=== PATIENT | female | born 1940 | race Caucasian/White ===

== ENCOUNTER → 2024-08-03 | Outpatient (CLI) | payer MEDICARE, OTHER, SELFPAY ==
[2024-08-03 14:32] LABS: Basophils % (Auto) 1 % (0-2.5); Eosinophils # (Auto) 0.1 Thou/mm3 (0.0-0.5); Eosinophils % (Auto) 3 % (0-10); Hematocrit 33.1 % (36.0-46.0); Hemoglobin 10.9 g/dL (12.0-16.0); Immature Granulocytes % (Auto) 1 % (0-0); Immature Granulocytes Auto 0.02 Thou/mm3 (0.00-0.00); Lymphocytes # (Auto) 1.1 Thou/mm3 (1.0-4.8); Lymphocytes % (Auto) 30 % (10-50); Mean Corpuscular HGB Conc 32.9 g/dl (31.0-37.0); Mean Corpuscular Hemoglobin 31.1 pg (25.0-35.0); Mean Corpuscular Volume 95 fL (80-100); Monocytes # (Auto) 0.5 Thou/mm3 (0.0-0.8); Monocytes % (Auto) 14 % (0-12); Neutrophils # (Auto) 1.9 Thou/mm3 (1.8-7.7); Neutrophils % (Auto) 52 % (37-80); Nucleated Red Blood Cell % 0 /100 WBC (0); Platelet Count 121 Thou/mm3 (140-440); White Blood Count 3.7 Thou/mm3 (3.6-11.0)
[2024-08-03 14:53] LABS: Alanine Aminotransferase 19 U/L (10-49); Albumin, Serum 4.4 gm/dL (3.4-4.8); Albumin/Globulin Ratio 1.9 (1.2-2.2); Alkaline Phosphatase 57 U/L (46-116); Anion Gap 7 (7-16); Aspartate Amino Transferase 30 U/L (0-34); BUN/Creatinine Ratio 40 Ratio (12-20); Bilirubin,Total 0.5 mg/dL (0.3-1.2); Blood Urea Nitrogen 40 mg/dL (9-23); Calcium 9.3 mg/dL (8.3-10.6); Calcium (Corrected) 9.3 mg/dL (8.5-10.1); Carbon Dioxide 29.5 mMol/L (20.0-31.0); Chloride 105 mMol/L (98-107); Globulin 2.3 gm/dL (2.3-3.5); Glucose 108 mg/dL (74-106); Osmolality,Calculated 291 (275-295); Potassium 4.4 mMol/L (3.4-5.1); Sodium 141 mMol/L (136-145); Total Protein 6.7 gm/dL (5.7-8.2); eGFR 56 See Note
== END | disposition home or self-care (01) ==
LOC: SCTO 13:15
PROVIDERS: PCP Internal Medicine; Referring Provider Internal Medicine Hematology & Oncology; Visit Provider Internal Medicine Hematology & Oncology
DX: C50.919 Malignant neoplasm of unspecified site of unspecified female breast (principal); M81.0 Age-related osteoporosis without current pathological fracture; D51.8 Other vitamin B12 deficiency anemias
CPT/HCPCS: 36415; 80053; 85025

== ENCOUNTER 2024-08-12 08:53 | Outpatient (RCR) | payer MEDICARE, OTHER, SELFPAY ==
--- NOTE | 2024-08-28 20:58 | CTCFLWUP_ITS ---
Patient: MAKAYLA HAMMONDS : 1940 Page 3 of 4 FOLLOW UP NOTE DATE OF SERVICE: 08/11/2024 NAME: MAKAYLA HAMMONDS ACCOUNT: [id number] : 1940 AGE: 84 INTERVAL HISTORY: Patient is doing well. 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 1995: Patient had right breast lumpectomy, axillary dissection at [facility] followed by chemothera py and radiation. As per patient her cancer was receptor negative. The pathology is not available to me. 2003: She had a recurrence or a second primary in the right breast. Patient had mastectomy. The pat h report is not available to me. Again as per patient the cancer was receptor negative. 02/20/2016: EGD? 02/27/2016: Colonoscopy? 09/30/2018: I am following the patient for the first time here at cancer center. She complains of new onset pain in the left axilla started about a month ago. She grades the pain 7/10. She denies any cough chest pain sh ortness of breath abdominal pain or leg cramps. She denies any weight loss or loss of appetite. She denies any injury to the left axillary region. 10/25/2018: Patient is in the clinic today for follow-up. Since last visit patient had PET/CT scan do ne on 10/22/2018 and it was a negative study. She also had a chest x-ray which showed an element of C OPD. Otherwise it is a negative study. Other than mild pain on the right side of the chest she mari es any other complaints. Denies any cough chest pain shortness of breath abdominal pain or leg cramp s. 02/27/2020: Open reduction fixation left bicondylar tibial plateau fracture using Synthes proximal tib ial periarticular plate. 04/11/2020: Ultrasound of the left lower extremity? 06/28/2020: Bone density test? 07/02/2020: B12 is 196 (211?911), iron saturation 15% 07/09/2020: Hemoglobin 7.4 with an MCV of 104. WBC 2.7, ANC 1.6, platelets 209,000. 07/16/2020: Patient received first dose of B12 injection. 08/06/2020: Doppler ultrasound study of the left lower extremity? 08/20/2020: Hemoglobin 8.5, MCV 100, WBC 4.2, ANC 2.8, platelets 201,000, iron saturation 6%, ferriti n 18. 09/03/2020?10/29/2020: The patient received Venofer infusions. 03/21/2024: WBC 3.7, ANC 1.9, hemoglobin 11.0, MCV 97, platelets 122,000, ferritin 495, B12 660, iron saturation 23%. 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 Citracal - 200 mg (950 mg) 1 tab Daily 2. Prolia - 60 mg/mL Medications Last Reconciled by Tanisha Whiteside MD on 08/11/2024 ALLERGIES: PENICILLINS; DOXYCYCLINE; SULFAMETHOXAZOLE; TRIMETHOPRIM; CIPROFLOXACIN; OMEPRAZOLE; RANIT IDINE; LEVOFLOXACIN; ciprofloxacin; DOXYCYCLINE HYCLATE; levofloxacin; omeprazole; Penicillins; ranit idine HCl; Sulfa (Sulfonamide Antibiotics); TRIMETHOPRIM REVIEW OF SYSTEMS: A complete 14-point review of systems was performed and is negative except as noted in interval histo ry. PHYSICAL EXAMINATION: VITAL SIGNS: Temperature?98.4, B/P?125/65, Oxygen?Saturation?99% Weight?110.4?lbs PAIN: 0 - No pain ECOG Performance Status: 0 - Asymptomatic and fully active GENERAL APPEARANCE: Appears well, in no apparent distress, appropriately interactive. HEENT: Normocephalic, no temporal wasting, normal conjunctiva, no scleral icterus, normal hearing, li ps without lesions, neck normal range of motion. CARDIOVASCULAR: Not assessed. PULMONARY: Normal respiratory effort, no respiratory distress or use of accessory muscles, speaking i n full sentences, no tachypnea. EXTREMITIES: No pedal edema or cyanosis. SKIN: Normal skin appearance. NEUROLOGIC: Alert and oriented x4. PSHYCHIATRIC: Appropriate affect, mood normal, behavior normal, intact thought and speech. LABORATORY DATA: I have personally reviewed and interpreted each of the patient?s relevant lab tests, abnormal finding s are below: Date 08/03/24 ??WHITE?BLOOD?COUNT?(Thou/mm3) 3.7 ??RED?BLOOD?COUNT?(Miln/mm3) 3.50?L ??HEMOGLOBIN?(gm/dl) 10.9?L ??HEMATOCRIT?(%) 33.1?L ??PLATELET?COUNT?(Thou/mm3) 121?L ??NEUTROPHILS?%,?AUTO?(%) 52 ??LYMPH?%,?AUTO?(%) 30 ??NEUTROPHILS,?AUTO?(Thou/mm3) 1.9 ASSESSMENT/PLAN: The patient is clinically doing well without any complaints. osteoporosis. Currently getting Prolia injections in Dr. Rogers's office. The patient is taking Citra lianne 1 tablet p.o. daily.. History of fracture of the left tibia and fibula requiring her to have surgery. She was also found t o have DVT in the left lower extremity. Treated with Xarelto for 3 months. Stopped on August 09, 2020. Remote history of right breast cancer without any evidence of recurrence at this time. Continue B12 once a month. I will see her back in clinic in 1 year with labs done prior to the visit. ORDERS: Cbc.cmp.left mammogram RETURN TO CLINIC: 6 months BILLING AND COMPLIANCE: I reviewed external records from providers outside my specialty as summarized above. I spent a total of 50 minutes on this patient?s care on the day of their visit excluding time spent related to any bi lled procedures. This time includes time spent with the patient as well as time spent documenting in the medical record, reviewing patients records and tests, obtaining history, placing orders, communi cating with other healthcare professionals, counseling the patient, family or caregiver, and/or care coordination for the diagnoses above. Electronically Signed by: Kris Max MD T: 8:55 PM CC: Antwan?TIM Rogers PCP: Antwan Rogers Referring: Antwan Rogers This document was completed utilizing speech recognition software. Grammatical errors, random word in sertions, pronoun errors, and incomplete sentences are an occasional consequence of this system due t o software limitations, ambient noise, and hardware issues. Any formal questions or concerns about th e content, text or information contained within the body of this dictation should be directly address ed to the provider for clarification.
== END 2024-08-30 23:59 | disposition home or self-care (01) ==
LOC: SCTC 08:53
PROVIDERS: PCP Internal Medicine; Referring Provider Internal Medicine; Visit Provider Internal Medicine Hematology & Oncology
DX: Z08 Encounter for follow-up examination after completed treatment for malignant neoplasm (principal); Z85.3 Personal history of malignant neoplasm of breast; M81.0 Age-related osteoporosis without current pathological fracture; E53.8 Deficiency of other specified B group vitamins; Z86.718 Personal history of other venous thrombosis and embolism
CPT/HCPCS: 96372; 99213; J3420; G0463

== ENCOUNTER 2024-09-08 13:46 | Outpatient (RCR) | payer MEDICARE, OTHER, SELFPAY | END 2024-09-30 23:59 | disposition home or self-care (01) | LOC: SCTC 13:46 | PROVIDERS: PCP Internal Medicine; Referring Provider Internal Medicine; Visit Provider Internal Medicine Hematology & Oncology | DX: E53.8 Deficiency of other specified B group vitamins (principal) | CPT/HCPCS: 96372; J3420 ==

== ENCOUNTER 2024-10-06 14:04 | Outpatient (RCR) | payer MEDICARE, OTHER, SELFPAY | END 2024-10-28 23:59 | disposition home or self-care (01) | LOC: SCTC 14:04 | PROVIDERS: PCP Internal Medicine; Referring Provider Internal Medicine; Visit Provider Internal Medicine Hematology & Oncology | DX: E53.8 Deficiency of other specified B group vitamins (principal) | CPT/HCPCS: 96372; J3420 ==

== ENCOUNTER 2024-11-03 13:49 | Outpatient (RCR) | payer MEDICARE, OTHER, SELFPAY | END 2024-11-28 23:59 | disposition home or self-care (01) | LOC: SCTC 13:49 | PROVIDERS: PCP Internal Medicine; Referring Provider Internal Medicine; Visit Provider Internal Medicine Hematology & Oncology | DX: E53.8 Deficiency of other specified B group vitamins (principal) | CPT/HCPCS: 96372; J3420 ==

== ENCOUNTER 2024-12-01 13:37 | Outpatient (RCR) | payer MEDICARE, OTHER, SELFPAY | END 2024-12-28 23:59 | disposition home or self-care (01) | LOC: SCTC 13:37 | PROVIDERS: PCP Internal Medicine; Referring Provider Internal Medicine; Visit Provider Internal Medicine Hematology & Oncology | DX: E53.8 Deficiency of other specified B group vitamins (principal); M81.0 Age-related osteoporosis without current pathological fracture; Z86.718 Personal history of other venous thrombosis and embolism; Z85.3 Personal history of malignant neoplasm of breast | CPT/HCPCS: 96372; J3420 ==

== ENCOUNTER 2024-12-29 13:50 | Outpatient (RCR) | payer MEDICARE, OTHER, SELFPAY | END 2025-01-28 23:59 | disposition home or self-care (01) | LOC: SCTC 13:50 | PROVIDERS: PCP Internal Medicine; Referring Provider Internal Medicine; Visit Provider Internal Medicine Hematology & Oncology | DX: E53.8 Deficiency of other specified B group vitamins (principal); M81.0 Age-related osteoporosis without current pathological fracture; Z85.3 Personal history of malignant neoplasm of breast; Z90.11 Acquired absence of right breast and nipple | CPT/HCPCS: 96372; J3420 ==

== ENCOUNTER 2025-01-30 13:50 | Outpatient (RCR) | payer MEDICARE, OTHER, SELFPAY | END 2025-02-27 23:59 | disposition home or self-care (01) | LOC: SCTC 13:50 | PROVIDERS: PCP Internal Medicine; Referring Provider Internal Medicine; Visit Provider Internal Medicine Hematology & Oncology | DX: E53.8 Deficiency of other specified B group vitamins (principal); M81.0 Age-related osteoporosis without current pathological fracture; Z85.3 Personal history of malignant neoplasm of breast | CPT/HCPCS: 96372; J3420 ==

== ENCOUNTER 2025-03-02 14:02 | Outpatient (RCR) | payer MEDICARE, OTHER, SELFPAY | END 2025-03-30 23:59 | disposition home or self-care (01) | LOC: SCTC 14:02 | PROVIDERS: PCP Internal Medicine; Referring Provider Internal Medicine; Visit Provider Internal Medicine Hematology & Oncology | DX: E53.8 Deficiency of other specified B group vitamins (principal) | CPT/HCPCS: 96372; J3420 ==

== ENCOUNTER → 2025-03-23 | Outpatient (CLI) | payer MEDICARE, OTHER, SELFPAY ==
--- NOTE | 2025-03-23 11:00 | XR_ITS ---
Examination: Screening digital mammography, unilateral left Computer aided detection 3-D breast Tomosynthesis, unilateral Date and time of exam: March 23, 2025 1038 hours Compared to mammograms dating to November 10, 2019 Indication: Screening Technique: Nonmagnified MLO, CC views of the LEFT breast to been obtained, reconstructed from 3-D Tomosynthesis images. R2 computer aided detection program utilized for evaluation of suspicious masses and/or abnormal calcifications. 3-D Tomosynthesis images obtained. Findings: Scattered areas of fibroglandular density. Benign calcifications. No interval suspicious masses Impression: BI-RADS category II Benign findings Recommend 1 year follow-up mammogram.
== END | disposition home or self-care (01) ==
LOC: CDIM 10:29
PROVIDERS: PCP Internal Medicine; Referring Provider Internal Medicine Hematology & Oncology; Visit Provider Internal Medicine Hematology & Oncology
DX: Z12.31 Encounter for screening mammogram for malignant neoplasm of breast (principal); R92.322 Mammographic fibroglandular density, left breast; C50.919 Malignant neoplasm of unspecified site of unspecified female breast
CPT/HCPCS: 77063; 77067

== ENCOUNTER 2025-04-03 13:15 | Outpatient (RCR) | payer MEDICARE, OTHER, SELFPAY | END 2025-04-30 23:59 | disposition home or self-care (01) | LOC: SCTC 13:15 | PROVIDERS: PCP Internal Medicine; Referring Provider Internal Medicine; Visit Provider Internal Medicine Hematology & Oncology | DX: E53.8 Deficiency of other specified B group vitamins (principal) | CPT/HCPCS: 96372; J3420 ==

== ENCOUNTER 2025-05-30 14:14 | Outpatient (RCR) | payer MEDICARE, OTHER, SELFPAY | END 2025-05-30 23:59 | disposition home or self-care (01) | LOC: SCTC 14:14 | PROVIDERS: PCP Internal Medicine; Referring Provider Internal Medicine; Visit Provider Internal Medicine Hematology & Oncology | DX: E53.8 Deficiency of other specified B group vitamins (principal) | CPT/HCPCS: 96372; J3420 ==

== ENCOUNTER 2025-06-27 14:18 | Outpatient (RCR) | payer MEDICARE, OTHER, SELFPAY | END 2025-06-30 23:59 | disposition home or self-care (01) | LOC: SCTC 14:18 | PROVIDERS: PCP Internal Medicine; Referring Provider Internal Medicine; Visit Provider Internal Medicine Hematology & Oncology | DX: E53.8 Deficiency of other specified B group vitamins (principal) | CPT/HCPCS: 96372; J3420 ==

== ENCOUNTER → 2025-08-01 | Outpatient (CLI) | payer MEDICARE, OTHER, SELFPAY ==
[2025-08-01 14:15] LABS: Basophils # (Auto) 0.0 Thou/mm3 (0.0-0.2); Basophils % (Auto) 1 % (0-2.5); Eosinophils # (Auto) 0.1 Thou/mm3 (0.0-0.5); Eosinophils % (Auto) 2 % (0-10); Hematocrit 33.7 % (36.0-46.0); Hemoglobin 10.6 g/dL (12.0-16.0); Immature Granulocytes Auto 0.01 Thou/mm3 (0.00-0.00); Lymphocytes # (Auto) 1.1 Thou/mm3 (1.0-4.8); Lymphocytes % (Auto) 31 % (10-50); Mean Corpuscular HGB Conc 31.5 g/dl (31.0-37.0); Mean Corpuscular Hemoglobin 31.4 pg (25.0-35.0); Mean Corpuscular Volume 100 fL (80-100); Monocytes # (Auto) 0.6 Thou/mm3 (0.0-0.8); Monocytes % (Auto) 15 % (0-12); Neutrophils # (Auto) 1.8 Thou/mm3 (1.8-7.7); Neutrophils % (Auto) 50 % (37-80); Nucleated Red Blood Cell # 0.00 Thou/mm3 (0.00-0.00); Nucleated Red Blood Cell % 0 /100 WBC (0); Platelet Count 115 Thou/mm3 (140-440); RDW Standard Deviation 50.1 fL (36.4-46.3); Red Blood Count 3.38 Miln/mm3 (4.00-5.20); White Blood Count 3.6 Thou/mm3 (3.6-11.0)
[2025-08-01 14:57] LABS: Alanine Aminotransferase 18 U/L (10-49); Albumin, Serum 4.3 gm/dL (3.4-4.8); Albumin/Globulin Ratio 1.5 (1.2-2.2); Alkaline Phosphatase 59 U/L (46-116); Anion Gap 11 (7-16); Aspartate Amino Transferase 30 U/L (0-34); BUN/Creatinine Ratio 20 Ratio (12-20); Bilirubin,Total 0.5 mg/dL (0.3-1.2); Blood Urea Nitrogen 16 mg/dL (9-23); Calcium 9.0 mg/dL (8.3-10.6); Calcium (Corrected) 9.0 mg/dL (8.5-10.1); Carbon Dioxide 27.2 mMol/L (20.0-31.0); Chloride 109 mMol/L (98-107); Creatinine (Component) 0.8 mg/dL (0.6-1.3); Globulin 2.8 gm/dL (2.3-3.5); Glucose 89 mg/dL (74-106); Osmolality,Calculated 292 (275-295); Potassium 4.2 mMol/L (3.4-5.1); Sodium 147 mMol/L (136-145); Total Protein 7.1 gm/dL (5.7-8.2); eGFR > 60 See Note
[2025-08-01 15:01] LABS: CA 15-3 4.6 U/mL (<32.4)
== END | disposition home or self-care (01) ==
LOC: SCTO 13:02
PROVIDERS: PCP Internal Medicine; Referring Provider Internal Medicine Hematology & Oncology; Visit Provider Internal Medicine Hematology & Oncology
DX: C50.919 Malignant neoplasm of unspecified site of unspecified female breast (principal); M81.0 Age-related osteoporosis without current pathological fracture; D51.8 Other vitamin B12 deficiency anemias
CPT/HCPCS: 36415; 80053; 85025; 86300

== ENCOUNTER 2025-08-22 14:20 | Outpatient (RCR) | payer MEDICARE, OTHER, SELFPAY ==
--- NOTE | 2025-09-03 20:04 | CTCFLWUP_ITS ---
Patient: MAKAYLA GALARZA : 1940 Page 4 of 4 FOLLOW UP NOTE DATE OF SERVICE: 08/10/2025 NAME: MAKAYLA GALARZA ACCOUNT: [id number] : 1940 AGE: 85 INTERVAL HISTORY: Patient is doing well. ONCOLOGY HISTORY: DIAGNOSIS: Malignant neoplasm of unspecified site of unspecified female breast [ICD10] C50.919; Age-related osteoporosis without current pathological fracture [ICD10] M81.0; Other vitamin B12 deficiency anemias [ICD10] D51.8 TREATMENT HISTORY: Care?Plan Start?Date Cycle Day Intent VENOfer?200mg?IV?wkly 05/01/2020 1 70 Palliative B?12?monthly 01/21/2023 1 28 Palliative B?12?monthly 01/14/2024 1 28 Palliative HISTORY OF PRESENT ILLNESS: Makayla Galarza is a 85-year-old female with following oncology history. 1995: Patient had right breast lumpectomy, axillary dissection at [facility] followed by chemotherapy and radiation. As per patient her cancer was receptor negative. The pathology is not available to me. 2003: She had a recurrence or a second primary in the right breast. Patient had mastectomy. The path report is not available to me. Again as per patient the cancer was receptor negative. 02/20/2016: EGD? 02/27/2016: Colonoscopy? 09/30/2018: I am following the patient for the first time here at cancer center. She complains of new onset pain in the left axilla started about a month ago. She grades the pain 7/10. She denies any cough chest pain shortness of breath abdominal pain or leg cramps. She denies any weight loss or loss of appetite. She denies any injury to the left axillary region. 10/25/2018: Patient is in the clinic today for follow-up. Since last visit patient had PET/CT scan done on 10/22/2018 and it was a negative study. She also had a chest x-ray which showed an element of COPD. Otherwise it is a negative study. Other than mild pain on the right side of the chest she denies any other complaints. Denies any cough chest pain shortness of breath abdominal pain or leg cramps. 02/27/2020: Open reduction fixation left bicondylar tibial plateau fracture using [employer] proximal tibial periarticular plate. 04/11/2020: Ultrasound of the left lower extremity? 06/28/2020: Bone density test? 07/02/2020: B12 is 196 (211?911), iron saturation 15% 07/09/2020: Hemoglobin 7.4 with an MCV of 104. WBC 2.7, ANC 1.6, platelets 209,000. 07/16/2020: Patient received first dose of B12 injection. 08/06/2020: Doppler ultrasound study of the left lower extremity? 08/20/2020: Hemoglobin 8.5, MCV 100, WBC 4.2, ANC 2.8, platelets 201,000, iron saturation 6%, ferritin 18. 09/03/2020?10/29/2020: The patient received Venofer infusions. 03/21/2024: WBC 3.7, ANC 1.9, hemoglobin 11.0, MCV 97, platelets 122,000, ferritin 495, B12 660, iron saturation 23%. 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 Prolia - 60 mg/mL Medications Last Reconciled by Elke Power MD on 08/10/2025 ALLERGIES: PENICILLINS; DOXYCYCLINE; SULFAMETHOXAZOLE; TRIMETHOPRIM; CIPROFLOXACIN; OMEPRAZOLE; RANITIDINE; LEVOFLOXACIN; ciprofloxacin; DOXYCYCLINE HYCLATE; levofloxacin; omeprazole; Penicillins; ranitidine HCl; Sulfa (Sulfonamide Antibiotics); TRIMETHOPRIM REVIEW OF SYSTEMS: A complete 14-point review of systems was performed and is negative except as noted in interval history. PHYSICAL EXAMINATION: VITAL SIGNS: Temperature?98.3, B/P?144/68, Oxygen?Saturation?99% Weight?103?lbs (Change?since?07/25/25:?-2.6?lbs) PAIN: 0 - No pain ECOG Performance Status: None GENERAL APPEARANCE: Appears well, in no apparent distress, appropriately interactive. HEENT: Normocephalic, no temporal wasting, normal conjunctiva, no scleral icterus, normal hearing, lips without lesions, neck normal range of motion. CARDIOVASCULAR: Not assessed. PULMONARY: Normal respiratory effort, no respiratory distress or use of accessory muscles, speaking in full sentences, no tachypnea. EXTREMITIES: No pedal edema or cyanosis. SKIN: Normal skin appearance. NEUROLOGIC: Alert and oriented x4. PSHYCHIATRIC: Appropriate affect, mood normal, behavior normal, intact thought and speech. LABORATORY DATA: I have personally reviewed and interpreted each of the patient?s relevant lab tests, abnormal findings are below: Date 08/03/24 08/01/25 ??WHITE?BLOOD?COUNT?(Thou/mm3) 3.7 3.6 ??RED?BLOOD?COUNT?(Miln/mm3) 3.50?L 3.38?L ??HEMOGLOBIN?(gm/dl) 10.9?L 10.6?L ??HEMATOCRIT?(%) 33.1?L 33.7?L ??PLATELET?COUNT?(Thou/mm3) 121?L 115?L ??NEUTROPHILS?%,?AUTO?(%) 52 50 ??LYMPH?%,?AUTO?(%) 30 31 ??NEUTROPHILS,?AUTO?(Thou/mm3) 1.9 1.8 ??GLUCOSE,RANDOM?(mg/dL) 108?H 89 ??BLOOD?UREA?NITROGEN?(mg/dL) 40?H 16 ??CREATININE?(mg/dL) 1.00 0.80 ??SODIUM?(mmol/L) 141 147?H ??POTASSIUM?(mmol/L) 4.4 4.2 ??CHLORIDE?(mmol/L) 105 109?H ??CrCl?(CandG)?(ml/min) 32.92 40.29 ??AST/SGOT?(Unit/L) 30 30 ??ALT/SGPT?(Unit/L) 19 18 ??ALKALINE?PHOSPHATASE?(Unit/L) 57 59 ??BILIRUBIN,?TOTAL?(mg/dL) 0.5 0.5 ??PROTEIN?TOTAL?(gm/dl) 6.7 7.1 ??ALBUMIN,?SERUM?(gm/dl) 4.4 4.3 ??GLOBULIN?(gm/dl) 2.3 2.8 ??ALBUMIN/GLOBULIN?RATIO 1.9 1.5 ??CALCIUM,?SERUM?(mg/dL) 9.3 9.0 ??CALCIUM?SERUM?(CORRECTED)?(mg/dL) 9.3 9.0 ASSESSMENT/PLAN: The patient is clinically doing well without any complaints. osteoporosis. Currently getting Prolia injections in Dr. Rogers's office. The patient is taking Citracal 1 tablet p.o. daily.. History of fracture of the left tibia and fibula requiring her to have surgery. She was also found to have DVT in the left lower extremity. Treated with Xarelto for 3 months. Stopped on August 09, 2020. Remote history of right breast cancer without any evidence of recurrence at this time. Continue B12 once a month. I will see her back in clinic in 1 year with labs done prior to the visit. ORDERS: Order # Description RETURN TO CLINIC: I reviewed the diagnosis, prognosis, and recommended treatment/procedure options with the patient (and/or their legal sales and marketing representative), including the potential benefits, risks, side effects and alternative therapies. We also discussed the option of no treatment and the possibility of clinical trial participation, if applicable. All questions were addressed, and they demonstrated understanding. They provided informed consent to proceed with the proposed plan of care. BILLING AND COMPLIANCE: I reviewed external records from providers outside my specialty as summarized above. I spent a total of 50 minutes on this patient?s care on the day of their visit excluding time spent related to any billed procedures. This time includes time spent with the patient as well as time spent documenting in the medical record, reviewing patients records and tests, obtaining history, placing orders, communicating with other healthcare professionals, counseling the patient, family or caregiver, and/or care coordination for the diagnoses above. Electronically Signed by: {Object.Sanct_ID*PnP.NameFL@M}, {Object.Sanct_ID*PnP.Suffix@U} D: {Object.Sanct_Date} T: {Object.Sanct_Time} CC: Antwan?Ken,? PCP: Antwan Rogers Referring: Antwan Rogers This document was completed utilizing speech recognition software. Grammatical errors, random word insertions, pronoun errors, and incomplete sentences are an occasional consequence of this system due to software limitations, ambient noise, and hardware issues. Any formal questions or concerns about the content, text or information contained within the body of this dictation should be directly addressed to the provider for clarification.
== END 2025-08-30 23:59 | disposition home or self-care (01) ==
LOC: SCTC 14:20
PROVIDERS: PCP Internal Medicine; Referring Provider Internal Medicine; Visit Provider Internal Medicine Hematology & Oncology
DX: E53.8 Deficiency of other specified B group vitamins (principal); M81.0 Age-related osteoporosis without current pathological fracture; Z85.3 Personal history of malignant neoplasm of breast; Z86.718 Personal history of other venous thrombosis and embolism
CPT/HCPCS: 96372; 99212; J3420; G0463